=== PATIENT | female | born 1950 | race Caucasian/White ===

== ENCOUNTER 2018-10-18 14:36 | Emergency (ER) | payer MEDICARE ==
[~2018-10-18] VITALS: Ht 152.4 cm; Wt 60.9 kg
[2018-10-18 14:39] VITALS: BP 148/87
== END 2018-10-18 16:09 | disposition home or self-care (01) ==
LOC: ED 15:54
DX: M70.22 Olecranon bursitis, left elbow (principal); I10 Essential (primary) hypertension; X50.1XXA Overexertion from prolonged static or awkward postures, initial encounter; Y93.89 Activity, other specified; Y92.009 Unspecified place in unspecified non-institutional (private) residence as the place of occurrence of the external cause; Y99.8 Other external cause status
CPT/HCPCS: 99283